=== PATIENT | female | born 1965 | race Caucasian/White ===

== ENCOUNTER → 2016-12-19 | Outpatient (CLI) | payer OTHER ==
--- NOTE | 2016-12-20 09:02 | MM ---
Reason for exam: screening (asymptomatic). Last mammogram was performed 1 year and 1 month ago. History: Patient had first child at age 39. Benign excisional biopsy of the left breast, 1992. Took hormonal contraceptives for 15 years beginning at age 20. Physical Findings: A clinical breast exam by your physician is recommended on an annual basis and results should be correlated with mammographic findings. MG 3D Screening Mammo W/Cad Bilateral CC and MLO view(s) were taken. Prior study comparison: November 10, 2015, right breast MG 3d work up w/cad RT. November 03, 2015, bilateral MG screening mammo w CAD. The breast tissue is heterogeneously dense. This may lower the sensitivity of mammography. Finding: There is a 7 mm equal density (isodense), obscured oval mass in the upper outer quadrant of the left breast. ASSESSMENT: Incomplete: need additional imaging evaluation, BI-RAD 0 RECOMMENDATION: Special view mammogram and ultrasound of the left breast. [facility] will attempt to contact patient to return for supplemental views and ultrasound.
== END | disposition home or self-care (01) ==
LOC: RADMAMWWP 08:17
PROVIDERS: ATTEND Obstetrics & Gynecology
DX: Z12.31 Encounter for screening mammogram for malignant neoplasm of breast (principal)
CPT/HCPCS: 77063; G0202

== ENCOUNTER → 2017-01-10 | Outpatient (CLI) | payer OTHER ==
--- NOTE | 2017-01-10 11:07 | MM ---
Reason for exam: additional evaluation requested from abnormal screening. Last mammogram was performed 1 month ago. History: Patient had first child at age 39. Benign excisional biopsy of the left breast, 1992. Took hormonal contraceptives for 15 years beginning at age 20. Physical Findings: Nurse did not find any significant physical abnormalities on exam. MG 3D Work Up W/Cad LT Spot compression ML and spot compression MLO view(s) were taken of the left breast. Prior study comparison: December 19, 2016, bilateral MG 3d screening mammo w/cad. November 10, 2015, right breast MG 3d work up w/cad RT. Persistent nodularity upper outer quadrant left breast. Ultrasound is recommended. These results were verbally communicated with the patient and result sheet given to the patient on 01/10/17. ASSESSMENT: Incomplete: need additional imaging evaluation, BI-RAD 0 RECOMMENDATION: Ultrasound of the left breast.
--- NOTE | 2017-01-10 11:08 | USB ---
Reason for exam: additional evaluation requested from abnormal screening. History: Patient had first child at age 39. Benign excisional biopsy of the left breast, 1992. Took hormonal contraceptives for 15 years beginning at age 20. US Breast Workup Limited LT Left breast ultrasound demonstrates a 0.3 x 0.2 x 0.4cm oval lesion too small to characterize at 1 o'clock and a 0.5 x 0.3 x 0.5cm oval, cystic lesion at 2 o'clock. These results were verbally communicated with the patient and result sheet given to the patient on 01/10/17. ASSESSMENT: Probably benign, BI-RAD 3 RECOMMENDATION: Follow-up diagnostic mammogram and ultrasound of the left breast in 6 months.
== END | disposition home or self-care (01) ==
LOC: RADMAMWWP 08:37
PROVIDERS: ATTEND Obstetrics & Gynecology
DX: R92.8 Other abnormal and inconclusive findings on diagnostic imaging of breast (principal)
CPT/HCPCS: 76642; G0206; G0279

== ENCOUNTER → 2017-09-04 | Outpatient (CLI) | payer OTHER ==
--- NOTE | 2017-09-04 11:13 | MM ---
Reason for exam: follow-up at short interval from prior study. Last mammogram was performed 8 months ago. History: Patient had first child at age 39. Benign excisional biopsy of the left breast, 1992. Took hormonal contraceptives for 15 years beginning at age 20. Physical Findings: Nurse did not find any significant physical abnormalities on exam. MG 3D Diag Mammo W/Cad LT CC and MLO view(s) were taken of the left breast. Prior study comparison: January 10, 2017, left breast MG 3d work up w/cad LT. December 19, 2016, bilateral MG 3d screening mammo w/cad. February 07, 2014, bilateral digital screening mammo w/CAD. January 30, 2013, bilateral digital screening mammo w/CAD. The breast tissue is heterogeneously dense. This may lower the sensitivity of mammography. Two areas of nodularity in the left upper outer quadrant are more pronounced. An area of nodularity superior left breast is stable from 2014. These results were verbally communicated with the patient and result sheet given to the patient on 09/04/17. ASSESSMENT: Incomplete: need additional imaging evaluation, BI-RAD 0 RECOMMENDATION: Ultrasound of the left breast.
--- NOTE | 2017-09-04 11:15 | USB ---
Reason for exam: additional evaluation requested from abnormal screening. History: Patient had first child at age 39. Benign excisional biopsy of the left breast, 1992. Took hormonal contraceptives for 15 years beginning at age 20. US Breast LT Left breast ultrasound includes all four quadrants, the retroareolar region and axilla. Finding demonstrates a 0.4 x 0.3 x 0.2cm cystic lesion at 1 o'clock and a 0.6 x 0.5 x 0.3cm cystic lesion at 2 o'clock. Both benign. These results were verbally communicated with the patient and result sheet given to the patient on 09/04/17. ASSESSMENT: Probably benign, BI-RAD 3 RECOMMENDATION: Follow-up diagnostic mammogram of both breasts in 6 months.
== END ==
LOC: RADMAMWWP 08:59
PROVIDERS: ATTEND Obstetrics & Gynecology
DX: R92.8 Other abnormal and inconclusive findings on diagnostic imaging of breast (principal)
CPT/HCPCS: 76641; G0206; G0279

== ENCOUNTER → 2018-03-12 | Outpatient (CLI) | payer OTHER ==
--- NOTE | 2018-03-13 08:13 | MM ---
Reason for exam: follow-up at short interval from prior study. Last mammogram was performed 6 months ago. History: Patient had first child at age 39. Benign excisional biopsy of the left breast, 1992. Took hormonal contraceptives for 15 years beginning at age 20. Physical Findings: Nurse Summary: prominent area nodular tissue, unable to determine borders at 9 o'clock (nurse ts). MG 3D Diag Mammo W/Cad CHELSIE Bilateral CC and MLO view(s) were taken. LM view(s) were taken of the left breast. Prior study comparison: September 04, 2017, left breast MG 3d diag mammo w/cad LT. January 10, 2017, left breast MG 3d work up w/cad LT. The breast tissue is heterogeneously dense. This may lower the sensitivity of mammography. There is a new lower outer quadrant mass at posterior depth with spiculated margins. Ultrasound will be performed. The left asymmetries are stable. These results were verbally communicated with the patient and result sheet given to the patient on 03/12/18. ASSESSMENT: Incomplete: need additional imaging evaluation, BI-RAD 0 RECOMMENDATION: Ultrasound of the right breast. (lower outer quadrant)
--- NOTE | 2018-03-13 08:16 | USB ---
Reason for exam: additional evaluation requested from abnormal screening. History: Patient had first child at age 39. Benign excisional biopsy of the left breast, 1992. Took hormonal contraceptives for 15 years beginning at age 20. US Breast Limited RT Right breast ultrasound demonstrates a 1.3 x 0.8 x 1.0cm irregular, hypoechoic, shadowing lesion at 8 o'clock and a 0.5 x 0.3 x 0.5cm possibly cystic lesion at 9 o'clock although only minimal increase through transmission on a single image. These results were verbally communicated with the patient and result sheet given to the patient on 03/12/18. ASSESSMENT: Highly suggestive of malignancy, BI-RAD 5 RECOMMENDATION: Ultrasound core biopsy of the right breast. (x 2) Called Dr. Bran with mammographic findings and has scheduled an appointment for the patient for 04/05/18 at 9:[address] Ruano. Biopsy scheduled for 03/19/18 at 10:00. PRELIMINARY REPORT CALLED AND FAXED TO DR. RUANO ON 03/13/18.
== END | disposition home or self-care (01) ==
LOC: RADMAMWWP 08:09
PROVIDERS: ATTEND Obstetrics & Gynecology
DX: R92.8 Other abnormal and inconclusive findings on diagnostic imaging of breast (principal)
CPT/HCPCS: 77066; 76642; G0279

== ENCOUNTER → 2018-03-19 | Day surgery (SDC) | payer OTHER ==
[2018-03-19 09:30] VITALS: RESP 16; BMI 25.6
[2018-03-19 11:22] VITALS: BP 136/84; PULSE 76; TEMP 98.3
--- NOTE | 2018-03-19 14:17 | USB ---
EXAMINATION TYPE: US biopsy breast VAD RT, MG diagnostic mammo RT wo CAD DATE OF EXAM: 03/19/2018 CLINICAL HISTORY: R92.8 Abn mammo. TECHNIQUE: Ultrasound guided core biopsy of a right breast mass. COMPARISON: Exams dating back to 11/10/2015 FINDINGS: The procedure of ultrasound guided core biopsy was explained to the patient. Benefits, alternatives, and risks were discussed. An informed consent was then obtained. Preprocedural timeout was performed. The patient was placed in supine positioning for imaging and for the procedure. The overlying skin was prepped and draped in usual sterile fashion. 10 cc of lidocaine buffered with bicarbonate was used as anesthetic into the skin and subcutaneous tissue up to the hypoechoic irregular right breast mass at the 8: 00 position measuring 1.3 x 0.8 x 1.0 cm. Under ultrasound guidance, a 12-gauge vacuum assisted biopsy gun device was used to obtain 5 core samples. Following this, a coil-shaped biopsy marker was left in lesion. On prescan images and additional 0.5 x 0.5 x 0 point for centimeters in hypoechoic mass was identified adjacent to the index mass such as on image 13 without increased through transmission. Ribbon-shaped biopsy marker was placed in this mass. Post clip placement demonstrates collapse of the mass compatible with a benign cyst. The patient tolerated the procedure well without any immediate complication. The patient was kept in the radiology department for short stay after the procedure and then discharged home in stable condition. IMPRESSION: Successful, uncomplicated ultrasound guided core biopsy of the highly suspicious 1.3 cm irregular right breast mass at the 8:00 position containing a coil-shaped biopsy marker, full pathology results to follow. 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 Recommendation Surgical consult of the right breast. LANE
== END ==
LOC: RADUSWWP 08:53
PROVIDERS: ATTEND Surgery
DX: C50.911 Malignant neoplasm of unspecified site of right female breast (principal)
CPT/HCPCS: 88305; 88342; 88341; 77065; 19083; A4648; J2001

== ENCOUNTER → 2018-04-13 | Outpatient (CLI) | payer OTHER ==
--- NOTE | 2018-04-14 09:53 | BMR ---
EXAMINATION TYPE: MR breast BILAT wo/w con DATE OF EXAM: 04/13/2018 COMPARISON: 03/19/2018 HISTORY: Rt breast ca 5-3-18 (moderately differentiated infiltrating ductal carcinoma with a focus of lobular carcinoma in situ), biopsy performed, hx lt breast lumpectomy TECHNIQUE: A series of fat and water weighted images in the long and short axis views of both breasts are obtained in conjunction with dynamic contrast MRI with subtraction technique. The patient was i njected with 6.5 mL intravenous Gadavist gadolinium contrast. Three-dimensional and additional post processing imaging is created on independent workstation and reviewed during official interpretation of this study. FINDINGS: The breasts are composed of heterogenous fibroglandular tissue. There is mild symmetric [place] kground parenchymal enhancement. Scattered T2 hyperintense nonenhancing cysts are seen bilaterally an d are subcentimeter. RIGHT BREAST: At the location of the prior biopsy there is susceptibility artifact from the biopsy ma rker and abnormal enhancement measuring 1.9 cm in transverse dimension with a dominant mass measuring 1.1 cm in anterior posterior dimension. This mass demonstrates type III kinetics compatible with bio psy-proven invasive ductal carcinoma. However there is abnormal linear nonmass enhancement continuing anteriorly from the lateral aspect of the mass extending 2.1 cm with type I kinetics. Additionally j ust superior to this approximately 8 mm there is abnormal nonmass linear enhancement measuring 3.0 cm in anterior posterior dimension this also demonstrates type I kinetics and is symmetric to the left breast. LEFT BREAST: At the 2:30 to 3:00 position within the left breast there is a 4 mm mass with type III kinetics, susp icious. This is located approximately 4 cm from the nipple. This is demonstrated on series 801 image 338 and subtraction series 802 image 338. Just superior to this a second smaller mass measuring 3 mm on image 362 also demonstrates type III kinetics to a lesser degree and may represent an intramammary lymph node as a small cleft is seen on image 62 of T1 nonfat sat precontrast images (series 601). Th vaishnavi are only located approximately 4 mm apart. Posterior to this on image 362 there is a focal area o f approximately 1.2 cm of linear clumped nonmass enhancement, however this demonstrates type I kineti cs and is also low suspicion. This is thought to be anterior to the prior left lumpectomy site. No carter rgical clips are seen. At the 6:00 position at posterior depth within the left breast there is a 4 mm mass and an adjacent 5 mm mass at the 5:00 position. These are located approximately 7.7 and 8.3 cm from the nipple. These both demonstrate type I persistent kinetics and are of low suspicion. LYMPH NODES: There is a markedly abnormal right axillary node measuring 1.3 cm in short axis on serie s 301 image 31. The remainder the right axillary lymph nodes appear morphologically unremarkable. No abnormal internal mammary adenopathy is identified. 3 mm left internal mammary nodes are seen. No jigar picious left adenopathy is identified. IMPRESSION: BI-RADS 4-[id number] right breast carcinoma (invasive ductal carcinoma and focus of lo bular carcinoma in situ). 1. Surrounding the biopsy marker the primary biopsy-proven invasive ductal carcinoma measures 1.9 x 1 .1 cm at 8:00 within the right breast. However a contiguous area of of linear nonmass enhancement wit h persistent genetic extends 2.1 cm anterior to the primary mass. Typically this would be of low susp icion, however given the biopsy results of focal lobular carcinoma in situ, lobular carcinoma is poss ible. MRI guided biopsy of the more anterior aspect is recommended to establish extent of disease. Re commendation for the additional site just superior to this measuring 3 cm and left breast similar are a would be based on biopsy results of the above site. 2. Within the left breast approximately 4 cm of the nipple there is a 4 mm suspicious mass with type III (washout) kinetics. Second look ultrasound is recommended. If seen on ultrasound ultrasound-guide d biopsy is recommended. If not seen on ultrasound MR guided biopsy is recommended. 3. Abnormal right axillary lymph node highly suspicious for metastasis. Ultrasound-guided biopsy or s urgical therapy are recommended.
== END | disposition home or self-care (01) ==
LOC: RADMRIMAIN 14:14
PROVIDERS: ATTEND Surgery
DX: C50.911 Malignant neoplasm of unspecified site of right female breast (principal); N63.20 Unspecified lump in the left breast, unspecified quadrant
CPT/HCPCS: 82565; 77059; 36415; 0159T; A9581

== ENCOUNTER 2018-04-23 11:56 | Day surgery (SDC) | payer OTHER ==
[2018-04-23] MEDS ORDERED: ALPRAZolam 0.5 MG TAB PO ONE (12:28)
[2018-04-23] MEDS ORDERED: NALOXONE 0.4 MG/ML 1 ML VIAL IV PRN (17:33)
[2018-04-23] MEDS ORDERED: ACETAMINOPHEN TAB 325 MG TAB PO PRN (17:33)
[2018-04-23] MEDS ORDERED: ONDANSETRON 4 MG/2 ML VIAL IVP PRN (17:33)
[2018-04-23] MEDS ORDERED: HYDROmorphone 0.5 MG/0.5 ML SYRINGE IVP PRN (17:33)
[2018-04-23] MEDS ORDERED: HYDROcodone/APAP 5-325MG 1 EACH TAB PO PRN (17:33)
--- NOTE | 2018-04-23 17:39 | P.GSHP ---
History of Present Illness H&P Date: 04/23/18 Chief Complaint: Right breast hematoma Patient here today for MRI guided biopsy. I was contacted by the nursing staff that the patient developed a hematoma following the procedure. Initially on ultrasound the hematoma was 1.5-2 cm and then later when rechecked it was as large as 3 cm. On ultrasound there appeared to be some active bleeding seen. Patient was having pain in the right breast. No syncopal episodes. Vital signs of been stable. She says the pain seems to be improved currently. Recent ultrasound shows stability of the hematoma without evidence of active bleeding. Past Medical History Past Medical History: Cancer Additional Past Medical History / Comment(s): breast History of Any Multi-Drug Resistant Organisms: None Reported Past Surgical History: Section Additional Past Surgical History / Comment(s): left breast excisional biopsy 1992-benign, breast biopsy 03/19/18 Past Anesthesia/Blood Transfusion Reactions: No Reported Reaction Past Psychological History: No Psychological Hx Reported Smoking Status: Never smoker Past Alcohol Use History: None Reported Past Drug Use History: None Reported - Past Family History Sister(s) Family Medical History: Cancer, Diabetes Mellitus Additional Family Medical History / Comment(s): leukemia Father Family Medical History: Diabetes Mellitus, Hypertension Mother Family Medical History: Hypertension Medications and Allergies Home Medications Medication Instructions Recorded Confirmed Type Multivitamin [Multivitamins Adult 1 tab PO DAILY 03/12/18 04/23/18 History Gummies] Cholecalciferol (Vitamin D3) 2,000 unit PO DAILY 04/19/18 04/23/18 History [Vitamin D3] amLODIPine [Norvasc] 5 mg PO DAILY 04/19/18 04/23/18 History Allergies Allergy/AdvReac Type Severity Reaction Status Date / Time No Known Allergies Allergy Verified 04/23/18 10:35 Surgical - Exam Vital Signs Temp Pulse Resp BP Pulse Ox 98.1 F 80 16 142/76 99 04/23/18 12:30 04/23/18 12:30 04/23/18 12:30 04/23/18 12:30 04/23/18 12:30 Physical exam: General: Well-developed, well-nourished HEENT: Normocephalic, sclerae nonicteric Right breast: Induration beneath a small needle incision site right breast at 8 :00 size of hematoma less than expected measuring approximately 2 cm by palpation. Abdomen: Nontender, nondistended Extremities: No edema Neuro: Alert and oriented Assessment and Plan (1) Hematoma of breast following procedure Narrative/Plan: Options discussed with the patient. We'll proceed with observation overnight. If hematoma stable hopefully can proceed with right axillary and left breast ultrasound biopsies tomorrow. Current Visit: Yes Status: Acute Code(s): [id number] - SNOMED Code(s): 274693803
[2018-04-23] MEDS: D5-0.45% NACL WITH KCL 20MEQ/L 1,000 ML IV SCH (18:34)
[2018-04-24 01:47] VITALS: RESP 18
[2018-04-24] MEDS: D5-0.45% NACL WITH KCL 20MEQ/L 1,000 ML IV SCH (02:48)
--- NOTE | 2018-04-24 07:58 | P.DS ---
Providers Expected date of discharge: 04/24/18 Attending physician: Emmanuel Ruano Primary care physician: Mikki Weinberg - Discharge Diagnosis(es) (1) Hematoma of breast following procedure Patient minute yesterday evening for observation after a MRI guided biopsy resulted in a right breast hematoma. Patient doing well at this time. The patient did not feel any increased pain and swelling or bleeding last night. Exam is unchanged from yesterday evening with a small hematoma at the 8 o'clock position right breast. We'll discharge patient today. Hopefully the patient can proceed with her left breast ultrasound core biopsy and right axillary lymph node biopsy today. Current Visit: Yes Status: Acute Plan - Discharge Summary Discharge Rx Participant: Yes New Discharge Prescriptions: No Action Multivitamin [Multivitamins Adult Gummies] 1 tab PO DAILY amLODIPine [Norvasc] 5 mg PO DAILY Cholecalciferol (Vitamin D3) [Vitamin D3] 2,000 unit PO DAILY Discharge Medication List Multivitamin [Multivitamins Adult Gummies] 1 tab PO DAILY 03/12/18 [History] Cholecalciferol (Vitamin D3) [Vitamin D3] 2,000 unit PO DAILY 04/19/18 [History] amLODIPine [Norvasc] 5 mg PO DAILY 04/19/18 [History]
[2018-04-24 08:55] VITALS: BP 149/78; PULSE 74; TEMP 97.5
--- NOTE | 2018-04-24 09:11 | BMR ---
EXAMINATION TYPE: MR breast biopsy w/vad RIGHT DATE OF EXAM: 04/23/2018 COMPARISON: 04/13/2018 HISTORY: Right breast biopsy and confirmation of the left breast biopsy marker placement. TECHNIQUE: Multiplanar, multisequence MR imaging of the right breast with the utilization of contrast was performed per biopsy protocol. Left breast was included in some sequences. The patient was injec radha with 6.5 mL intravenous Gadavist gadolinium contrast. Three-dimensional and additional postproc essing imaging is created on independent workstation and reviewed during the biopsy. FINDINGS: On preprocedural imaging the previously identified mass elongates and appears vascular ther efore adjacent to this the anterior margin of area of linear nonmass enhancement measuring 2.1 cm was biopsied corresponding to the MR image 269 of series 801 from the exam of 04/13/2018 to establish ant erior extent of disease in this patient with a known lobular carcinoma in situ and infiltrating ducta l carcinoma. A left biopsy marker placed under ultrasound guidance just prior to the procedure within a sonographi c mass in attempt to correlate a sonographic mass with the abnormal area of enhancement within the le ft breast seen on the MRI dated 04/13/2018. This appears to correlate with the biopsy marker just supe rior to the MRI mass and similar measurement from the nipple therefore ultrasound-guided biopsy is re commended. PROCEDURE: Preprocedural timeout was performed. Informed consent was obtained from the patient. The p atient was given an anxiolytic per nursing staff prior to the procedure. A grid was placed on the rig ht breast. Preprocedural imaging was performed establishing the target. Images were sent to the three -dimensional postprocessing software and computer algorithm was utilized to establish depth and locat ion in accordance to the grid and fiducial. The patient was sterilely prepped with Betadine and 1% li docaine without epinephrine was utilized to anesthetize the subcutaneous tissues. Subsequently the tr ocar was introduced to the appropriate depth and confirmation scan was performed after placement of t he stopper. At the site of biopsy the patient was again anesthetized with 10 cc of lidocaine without epinephrine. A vacuum assisted needle was used to obtain 8 samples. Biopsy marker was placed and conf irmation sequence was performed. The biopsy marker appears appropriately placed. A small postprocedur al hematoma was noted on postprocedural scanning. IMPRESSION: 1. Successful MRI guided biopsy of the right breast to establish anterior extent of disease in this p atient with known lobular carcinoma in situ and infiltrating ductal carcinoma. 2. Successful left breast biopsy marker placement corresponding to the abnormal area of enhancement o n the prior MR dated 04/13/2018. Ultrasound-guided core needle biopsy will subsequently be performed.
== END 2018-04-24 09:16 | disposition home or self-care (01) ==
LOC: RADMRIMAIN 11:56 → 6PED 17:44 → RADMRIMAIN 04-24 09:16
PROVIDERS: ATTEND Surgery
DX: C50.911 Malignant neoplasm of unspecified site of right female breast (principal); L76.32 Postprocedural hematoma of skin and subcutaneous tissue following other procedure; Z79.899 Other long term (current) drug therapy
CPT/HCPCS: 76536; 76641; 0159T; 19085; A4648; A9581

== ENCOUNTER 2018-04-23 12:01 | Day surgery (SDC) | payer OTHER ==
[2018-04-23 12:51] VITALS: BP 145/88; PULSE 80; RESP 16; TEMP 98.1
--- NOTE | 2018-04-23 16:34 | US ---
Discontinued biopsy right axilla HISTORY: Abnormal imaging exam, right breast cancer Exam is rescheduled due to biopsy hematoma same date.
--- NOTE | 2018-04-24 10:58 | USB ---
Reason for exam: additional evaluation requested from prior study. History: Patient has history of breast cancer at age 52 and had first child at age 39. Malignant US biopsy breast VAD RT of the right breast, March 19, 2018. Benign excisional biopsy of the left breast, 1992. Took hormonal contraceptives for 15 years beginning at age 20. US Breast LT Left complete breast ultrasound includes all four quadrants, the retroareolar region and axilla. Finding demonstrates a 0.6 x 0.4 x 0.6cm oval, cystic lesion at 2 o'clock, a 0.6 x 0.4 x 0.4cm oval, cystic lesion at 2 o'clock, a 0.4 0.2 x 0.5cm oval, hypoechoic, questionable node at 2 o'clock for which a biopsy is recommended, corresponds to MRI finding, a 0.5 x 0.2 x 0.4cm oval, cystic cluster at 2 o'clock and a 0.3 x 0.2 x 0.6cm oval, cystic lesion at 6 o'clock. These results were verbally communicated with the patient and result sheet given to the patient on 04/23/18. ASSESSMENT: Suspicious, BI-RAD 4 RECOMMENDATION: Ultrasound core biopsy of the left breast.
== END 2018-04-23 16:30 | disposition home or self-care (01) ==
LOC: RADPROMAIN 12:01
PROVIDERS: ATTEND Surgery
DX: C50.511 Malignant neoplasm of lower-outer quadrant of right female breast (principal)
CPT/HCPCS: 76536

== ENCOUNTER 2018-05-01 12:00 | Day surgery (SDC) | payer OTHER ==
[2018-05-01] MEDS ORDERED: ALPRAZolam 0.5 MG TAB PO STA (12:39)
[2018-05-01 15:36] VITALS: TEMP 97
--- NOTE | 2018-05-01 16:03 | USB ---
EXAMINATION TYPE: US biopsy breast VAD LT DATE OF EXAM: 05/01/2018 CLINICAL HISTORY: R92.8 abnl mammogram. TECHNIQUE: Ultrasound guided core biopsy of left breast. COMPARISON: NONE FINDINGS: The procedure of ultrasound guided core biopsy was explained to the patient. Benefits, alternatives, and risks were discussed. An informed consent was then obtained. Preprocedural timeout was performed. The hypoechoic shadowing mass at the 2:00 position in zone BC containing a biopsy clip marker placed pre-MRI on 04/23/2018 corresponding to the abnormal area of enhancement on MRI measures 4 mm and was preprocedurally located. The patient was placed in supine positioning for imaging and for the procedure. The overlying skin was prepped and draped in usual sterile fashion. 10 cc of lidocaine buffered with bicarbonate was used as anesthetic into the skin and subcutaneous tissue up to area described above within the left breast. Under ultrasound guidance, a 12-gauge vacuum assisted biopsy gun device was used to obtain 5 core samples. Following this, a ribbon-shaped biopsy marker was left in lesion. The patient tolerated the procedure well without any immediate complication. The patient was kept in the radiology department for short stay after the procedure and then discharged home in stable condition. IMPRESSION: Successful, uncomplicated ultrasound guided core biopsy of a 4 mm hypoechoic shadowing mass at the 2:00 position within the left breast containing a biopsy marker corresponding to abnormal enhancement on MR, full pathology results to follow. Pathology Results: Benign LEFT BREAST, NEEDLE CORE BIOPSIES: Fibrocystic spectrum changes, fibroadenoma. Mineralizations are not identified. Recommendation Surgical consult of the right breast. Continued management. Left benign, fibroadenoma, no malignancy identified in the left breast. [facility]
[2018-05-01 16:06] VITALS: BP 147/76; PULSE 86; RESP 16
--- NOTE | 2018-05-01 16:08 | US ---
EXAMINATION TYPE: US biopsy lymph node. Grayscale and color Doppler Duplex imaging performed of the scrotum. DATE OF EXAM: 05/01/2018 COMPARISON: NONE CLINICAL HISTORY: C50.511 Right breast cancer. Abnormal axillary adenopathy. FINDINGS: The procedure of ultrasound guided core biopsy was explained to the patient. Benefits, alt ernatives, and risks were discussed. An informed consent was then obtained. Preprocedural timeout w as performed. Two adjacent right axillary lymph nodes are seen. The lymph node with the most thickened cortex was s ampled as indicated on the images with a cortex measuring 8 mm eccentrically. The patient was placed in supine positioning for imaging and for the procedure. The overlying skin w as prepped and draped in usual sterile fashion. 10 cc of lidocaine buffered with bicarbonate was used as anesthetic into the skin and subcutaneous tissue up to area described above within the right [address] st. Under ultrasound guidance, a 18-gauge Temno device was used to obtain 6 core samples. Following this , a Hydromark biopsy marker was left in axillary node. The patient tolerated the procedure well without any immediate complication. The patient was kept in the radiology department for short stay after the procedure and then discharged home in stable condi tion. IMPRESSION: Successful, uncomplicated ultrasound guided core biopsy of a a right axillary lymph node with an eccentrically thickened cortex measuring up to 8 mm with a hydromark biopsy marker placed, fu ll pathology results to follow.
== END 2018-05-01 14:45 | disposition home or self-care (01) ==
LOC: RADUSMAIN 12:00
PROVIDERS: ATTEND Surgery
DX: D24.2 Benign neoplasm of left breast (principal); N60.12 Diffuse cystic mastopathy of left breast; R92.8 Other abnormal and inconclusive findings on diagnostic imaging of breast
CPT/HCPCS: 88305; 38505; 19083; A4648; 76942

== ENCOUNTER → 2018-05-19 | Outpatient (CLI) | payer OTHER ==
--- NOTE | 2018-05-20 13:09 | PE ---
Nuclear medicine PET/CT HISTORY: Breast carcinoma, initial Patient received 11.4 mCi F-18 FDG intravenously in delayed scanning was performed from the skull bas e to the mid thighs. Localization and attenuation correction CT scan was performed. Correlation to prior MR breast 04/23/2018 Neck and chest: There is no evident lung nodule. There are prevascular nodes without associated hyper metabolic uptake. Right axilla shows lymph node measures approximately 9 mm with associated hypermeta bolic uptake, SUV 3. Additional lymph nodes noted, smaller, without significant hypermetabolic uptake . Posterior right breast mass shows an SUV of 3.1, there is likely metallic clip at this level, focus is subcentimeter in size. Abdomen pelvis: No evident liver mass. No suspicious hypermetabolic uptake. No retroperitoneal mass. Lobular contour to the uterus with calcification compatible with fibroid uterus. Osseous structures are unremarkable. IMPRESSION: Findings compatible with patient's history of breast carcinoma as described. Right axilla ry node with mild uptake as described.
== END ==
LOC: RADPETMAIN 15:50
PROVIDERS: ATTEND Internal Medicine Hematology & Oncology
DX: C50.511 Malignant neoplasm of lower-outer quadrant of right female breast (principal); R94.8 Abnormal results of function studies of other organs and systems
CPT/HCPCS: 78815; A9552

== ENCOUNTER → 2018-05-31 | Outpatient (CLI) | payer OTHER ==
--- NOTE | 2018-06-04 10:30 | ECHOF ---
Referral Reason:Z01.818 Pre Chemo MEASUREMENTS -------- HEIGHT: 157.5 cm WEIGHT: 63.5 kg BP: RVIDd: 2.5 cm (< 3.3) IVSd: 1.0 cm (0.6 - 1.1) LVIDd: 4.0 cm (3.9 - 5.3) LVPWd: 1.0 cm (0.6 - 1.1) IVSs: 1.2 cm LVIDs: 2.6 cm LVPWs: 1.2 cm LAESV Index (A-L): 17.49 ml/m Ao Diam: 2.8 cm (2.0 - 3.7) AV Cusp: 1.9 cm (1.5 - 2.6) LA Diam: 2.4 cm (2.7 - 3.8) EPSS: 0.4 cm MV E Moody: 0.78 m/s MV DecT: 200 ms MV A Moody: 1.08 m/s MV E/A Ratio: 0.72 RAP: 5.00 mmHg RVSP: 17.89 mmHg MV EF SLOPE: 101.75 mm/s (70 - 150) MV EXCURSION: 1.17 cm (> 18.000) FINDINGS -------- Sinus rhythm. This was a technically good study. The left ventricular size is normal. Left ventricular wall thickness is normal. Overall left vent ricular systolic function is normal with, an EF between 55 - 60 %. The right ventricle is normal in size and function. Normal LA size by volume 22+/-6 ml/m2. The right atrium is normal in size. The aortic valve is trileaflet, and appears structurally normal. No aortic stenosis or regurgitation. The mitral valve is normal. There is trace to mild mitral regurgitation. Trace tricuspid regurgitation present. Right ventricular systolic pressure is normal at < 35 mmHg. There is no evidence of pulmonary hypertension. Trace/mild (physiologic) pulmonic regurgitation. The aortic root size is normal. Normal inferior vena cava with normal inspiratory collapse consistent with estimated right atrial pre ssure of 5 mmHg. There is no pericardial effusion. CONCLUSIONS -------- 1. Sinus rhythm. 2. This was a technically good study. 3. The left ventricular size is normal. 4. Left ventricular wall thickness is normal. 5. Overall left ventricular systolic function is normal with, an EF between 55 - 60 %. 6. Normal LA size by volume 22+/-6 ml/m2. 7. The aortic valve is trileaflet, and appears structurally normal. No aortic stenosis or regurgitati on. 8. There is trace to mild mitral regurgitation. 9. Trace tricuspid regurgitation present. 10. Right ventricular systolic pressure is normal at < 35 mmHg. 11. There is no evidence of pulmonary hypertension. 12. Trace/mild (physiologic) pulmonic regurgitation. 13. The aortic root size is normal. 14. There is no pericardial effusion. STACKER OPERATOR: Melquiades Ashby RDCS
== END ==
LOC: RADECHMAIN 16:06
PROVIDERS: ATTEND Internal Medicine Hematology & Oncology
DX: Z01.818 Encounter for other preprocedural examination (principal); I34.0 Nonrheumatic mitral (valve) insufficiency; C50.511 Malignant neoplasm of lower-outer quadrant of right female breast
CPT/HCPCS: 93306

== ENCOUNTER 2018-06-11 10:09 | Day surgery (SDC) | payer OTHER ==
[2018-06-05 11:33] VITALS: BMI 25.6
[~2018-06-11 10:09] MED LIST: DEXAMETHASONE SOD PHOSPHATE 10 MG/ML 1 ML VIAL IV ONE; LACTATED RINGERS 1,000 ML IV SCH; LIDOCAINE 1% 20 ML VIAL (10MG/ML) FOR IV START INTRADERMA PRN; MIDAZOLAM 2 MG/2 ML VIAL IV PRN; ONDANSETRON 4 MG/2 ML VIAL IVP ONE; Pre Op ABX Message 1 EACH MISC MISCELLANE ONE
[2018-06-11 10:54] VITALS: RESP 16; TEMP 99.3
[2018-06-11] MEDS ORDERED: LIDOCAINE 1% INJ 10MG/ML (20 ML MDV) SQ ONE ×2 (11:21→12:27)
--- NOTE | 2018-06-11 11:34 | P.GSHP ---
History of Present Illness H&P Date: 06/11/18 Chief Complaint: Right breast cancer Patient here today for Port-A-Cath placement. Diagnosed with recent right breast cancer. Patient was found to have a suspicious lymph node in the right axilla. A biopsy showed this to contain metastatic disease. She is going to begin neoadjuvant treatment. Past Medical History Past Medical History: Cancer, Hypertension Additional Past Medical History / Comment(s): R Breast History of Any Multi-Drug Resistant Organisms: None Reported Past Surgical History: Section Additional Past Surgical History / Comment(s): left breast excisional biopsy 1992-benign, breast biopsy 03/19/18, MRI right breast biopsy 04/23/18, Past Anesthesia/Blood Transfusion Reactions: No Reported Reaction Smoking Status: Never smoker - Past Family History Sister(s) Family Medical History: Cancer, Diabetes Mellitus Additional Family Medical History / Comment(s): leukemia Father Family Medical History: Diabetes Mellitus, Hypertension Mother Family Medical History: Hypertension Medications and Allergies Home Medications Medication Instructions Recorded Confirmed Type Multivitamin [Multivitamins Adult 1 tab PO DAILY 03/12/18 06/11/18 History Gummies] Cholecalciferol (Vitamin D3) 2,000 unit PO DAILY 04/19/18 06/11/18 History [Vitamin D3] amLODIPine [Norvasc] 5 mg PO DAILY 04/19/18 06/11/18 History Allergies Allergy/AdvReac Type Severity Reaction Status Date / Time No Known Allergies Allergy Verified 06/11/18 10:54 Surgical - Exam Vital Signs Temp Pulse Resp BP Pulse Ox 99.3 F 94 16 166/88 100 06/11/18 10:48 06/11/18 10:48 06/11/18 10:48 06/11/18 10:48 06/11/18 10:48 Physical exam: General: Well-developed, well-nourished HEENT: Normocephalic, sclerae nonicteric Abdomen: Nontender, nondistended Extremities: No edema Neuro: Alert and oriented Assessment and Plan (1) Breast cancer, right Narrative/Plan: Will proceed with Port-A-Cath placement at this time. Risks of bleeding, infection, pneumothorax, DVT, catheter malfunction were reviewed. She understands and wishes to proceed. Current Visit: Yes Status: Acute Code(s): C50.911 - MALIGNANT NEOPLASM OF UNSP SITE OF RIGHT FEMALE BREAST SNOMED Code(s): 518280839
[2018-06-11] MEDS ORDERED: MIDAZOLAM 2 MG/2 ML VIAL ONE (11:46)
[2018-06-11] MEDS ORDERED: PROPOFOL 10 MG/ML 20 ML VIAL IV ONE (11:46)
[2018-06-11] MEDS ORDERED: KETAMINE 10 MG/ML 20 ML VIAL ONE (11:46)
[2018-06-11] MEDS ORDERED: fentaNYL (PF) 50 MCG/ML 2 ML AMP ONE (11:46)
[2018-06-11] MEDS ORDERED: NALOXONE 0.4 MG/ML 1 ML VIAL IV PRN (12:40)
--- NOTE | 2018-06-11 12:45 | P.OP ---
Date of Procedure: 06/11/18 Procedure(s) Performed: PREOPERATIVE DIAGNOSIS: Right breast cancer POSTOPERATIVE DIAGNOSIS: Same PROCEDURE: Port-A-Cath placement SURGEON: Bindu EBL: Minimal ANESTHESIA: Sedation COMPLICATIONS: None OPERATIVE PROCEDURE: Patient was brought and placed on the operative table in the supine position. The patient was sedated per anesthesia that time. The chest and neck were prepped and draped in usual sterile fashion. The ultrasound probe was used to identify the location of the right internal jugular vein. The skin was localized with lidocaine. The Seldinger needle was advanced into the IJ under ultrasound guidance. The wire was advanced through the needle under fluoroscopic guidance into the superior vena cava. A port pocket was created in the right infraclavicular location. The catheter was tunneled from the wire entrance site to the port pocket. The port was then connected to the catheter. The dilator introducer was threaded over the guidewire. The guidewire and dilator were then removed. The catheter was advanced through the introducer and introducer was then removed. The tip was seen to be in the right atrial junction. Port was flushed with both saline and a Hep-Lock solution. There was good flow both in and out of the port. The port was sutured in underlying tissues using 3-0 silk sutures. The subcutaneous tissues were reapproximated using 3-0 Vicryl sutures and the skin at both locations using 4-0 Monocryl sutures. Steri-Strips and sterile dressings then applied. DISPOSITION: Stable to recovery room
--- NOTE | 2018-06-11 12:54 | FL ---
EXAMINATION TYPE: FL guided central line placemt HISTORY: Fluoroscopy time Impression: 1. Fluoroscopy support provided to the referring physician. 5 seconds of fluoroscopy provided.
[2018-06-11 13:35] VITALS: PULSE 70
--- NOTE | 2018-06-11 13:40 | XR ---
EXAMINATION TYPE: XR chest 1V confirm line [facility] DATE OF EXAM: 06/11/2018 COMPARISON: NONE HISTORY: 53 year-old female line placement TECHNIQUE: Single frontal view of the chest is obtained. FINDINGS: Heart upper limits of normal in size. Aorta and pelvic vasculature within normal limits. R ight anterior chest wall injection port with catheter tip at the cavoatrial junction. No consolidatio n or pleural effusion. Some strandy atelectasis of the lower lungs. IMPRESSION: 1. Right anterior chest wall injection port with catheter tip at the cavoatrial junction. 2. No acute process seen.
[2018-06-11 13:56] VITALS: BP 136/84
== END 2018-06-11 14:06 | disposition home or self-care (01) ==
LOC: OR 10:09
PROVIDERS: ATTEND Surgery
DX: C50.511 Malignant neoplasm of lower-outer quadrant of right female breast (principal); I10 Essential (primary) hypertension; Z79.899 Other long term (current) drug therapy
CPT/HCPCS: 81025; 77001; 36561; 76937; C1788; J2250; J1100; J2405; J2001; J3010; J1642; J2704

== ENCOUNTER 2018-10-18 11:23 | Day surgery (SDC) | payer OTHER ==
[2018-10-15 12:35] VITALS: BMI 27.4
--- NOTE | 2018-10-18 09:41 | P.GSHP ---
History of Present Illness H&P Date: 10/18/18 Chief Complaint: Right breast cancer 53-year-old female known to our service. Patient was found in February to have a new mass in the lower outer quadrant of her right breast measuring 1.3 x 0.8 cm. She underwent an ultrasound core biopsy revealing moderately differentiated adenocarcinoma ER/ND positive HER-2/juventino negative. No family history. Patient underwent an MRI following the diagnosis of malignancy is found to have a suspicious right axillary lymph node as well as an abnormality in the left breast. She underwent an MRI guided biopsy of the left breast that was benign. Really the MRI biopsy of the right axilla showed a metastatic node. PET scan was negative. Mammorint was obtained and this was high risk. Patient was started on neoadjuvant chemotherapy. Patient has been offered plastic surgery reconstruction and has declined. She remains interested at this time in breast conservation. Patient did discuss genetic testing with oncology. I do not have those results in my office records at this time Past Medical History Past Medical History: Cancer, Hypertension Additional Past Medical History / Comment(s): R Breast History of Any Multi-Drug Resistant Organisms: None Reported Past Surgical History: Section Additional Past Surgical History / Comment(s): left breast excisional biopsy ; benign,L Br lumpectomy; R breast biopsy ;Chemo06/06 Past Anesthesia/Blood Transfusion Reactions: No Reported Reaction Smoking Status: Never smoker - Past Family History Sister(s) Family Medical History: Cancer, Diabetes Mellitus Additional Family Medical History / Comment(s): leukemia Father Family Medical History: Diabetes Mellitus, Hypertension Mother Family Medical History: Hypertension Medications and Allergies Home Medications Medication Instructions Recorded Confirmed Type Multivitamin [Multivitamins Adult 1 tab PO DAILY 03/12/18 10/15/18 History Gummies] Cholecalciferol (Vitamin D3) 2,000 unit PO DAILY 04/19/18 10/15/18 History [Vitamin D3] amLODIPine [Norvasc] 5 mg PO DAILY 04/19/18 10/15/18 History Allergies Allergy/AdvReac Type Severity Reaction Status Date / Time No Known Allergies Allergy Verified 10/15/18 12:15 Surgical - Exam Physical exam: General: Well-developed, well-nourished HEENT: Normocephalic, sclerae nonicteric Left breast: No masses, no adenopathy Right breast: Small fullness at previous hematoma site lower outer quadrant, no palpable adenopathy Abdomen: Nontender, nondistended Extremities: No edema Neuro: Alert and oriented Assessment and Plan (1) Breast cancer, right Narrative/Plan: 53-year-old female with recent diagnosis of right breast cancer and axillary iraida metastasis. Discussed with the patient in detail. She remains interested in breast conservation at this time. We'll proceed with right breast wire localization lumpectomy with wire localization and sentinel lymph node biopsy/injection with possible full axillary iraida dissection. Oncology also requesting Port-A-Cath removal at this time. That will take place simultaneous to the other procedures. Patient understands the need for postoperative radiation therapy. Again she has declined plastic surgery reconstruction/mastectomy. The risks of bleeding, infection, scarring, numbness , nerve injury, seroma or recurrence, potential need for additional surgery were reviewed and she understands and wishes to proceed. Status: Acute Code(s): C50.911 - MALIGNANT NEOPLASM OF UNSP SITE OF RIGHT FEMALE BREAST SNOMED Code(s): 006709707
[~2018-10-18 11:23] MED LIST changes: +ALPRAZolam 0.5 MG TAB PO PRN; +HYDROmorphone 1 MG/ML 1 ML SYRINGE IVP PRN; -MIDAZOLAM 2 MG/2 ML VIAL IV PRN; +SCOPOLAMINE 1.5MG/72HR PATCH TRANSDERM ONE
[2018-10-18] MEDS ORDERED: LIDOCAINE 1%-EPI 1:100,000 20 ML VIAL SQ ONE (13:30)
[2018-10-18] MEDS ORDERED: SODIUM BICARB 4% 5 ML VIAL (0.48 MEQ/ML) MISCELLANE ONE (13:30)
[2018-10-18] MEDS ORDERED: LIDOCAINE 1% INJ 10MG/ML (20 ML MDV) SQ ONE (13:30)
[2018-10-18 14:21] LABS: Glucose,Whole Blood 126 mg/dL (75-99)
--- NOTE | 2018-10-18 14:23 | NM ---
EXAMINATION TYPE: NM sentinel node injection DATE OF EXAM: 10/18/2018 COMPARISON: NONE HISTORY: Right-sided breast cancer TECHNIQUE AND FINDINGS: The procedure of sentinel lymph node injection was explained to the patient. The benefits, alternatives, and risks were discussed. An informed consent was then obtained. Overlying skin is cleaned with sterile alcohol. Following this, 464 uCi Tc99m Tilmanocept was inject ed in the upper outer aspect of the right nipple intradermally. The patient tolerated the procedure well without any immediate complication. The patient was kept in the radiology department for short stay after the procedure and then taken to surgery for surgical p rocedure what is presumed intraoperative gamma probe will be used for sentinel lymph node detection. IMPRESSION: Right breast radiotracer injection for sentinel node localization as above.
[2018-10-18] MEDS: MIDAZOLAM 2 MG/2 ML VIAL IV PRN ×2 (14:32→14:40)
[2018-10-18] MEDS ORDERED: ceFAZolin IN SWFI 2 GM/20 ML SYRINGE IVP STA (14:35)
[2018-10-18] MEDS ORDERED: HEPARIN SODIUM,PORCINE 5,000 UNIT/ML 1 ML VIAL SQ STA (14:36)
--- NOTE | 2018-10-18 14:47 | P.ONQ ---
Anesthesiology Proc Note - PNB - Peripheral Nerve Block Performed Right Other (see comment) Single Time Out Performed: Yes Procedure Start Time: 14:32 Procedure Stop Time: 14:39 Indication: Acute Post-Operative Pain, Requested by physician Sedation Type: Sedate with meaningful contact maintained Preparation: Sterile Prep Position: Supine Needle Size: 50mm (2") Needle Gauge: 21 Technique: Ultrasound Injectate: 0.5% Ropivacaine (see comment for volume) (ropi .5% 30cc) Blood Aspirated: No Pain Paresthesia on Injection Noted: No Resistance on Injection: Normal Events: Uneventful and Well Tolerated
[2018-10-18] MEDS ORDERED: MIDAZOLAM 2 MG/2 ML VIAL ONE (14:58)
[2018-10-18] MEDS ORDERED: HYDROmorphone (PF) 1 MG/ML ONE (14:58)
[2018-10-18] MEDS ORDERED: fentaNYL (PF) 50 MCG/ML 2 ML AMP ONE (14:58)
[2018-10-18] MEDS ORDERED: PHENYLEPHRINE-0.9% NACL SYG 1 MG/10 ML SYRINGE ONE (14:58)
[2018-10-18] MEDS ORDERED: LIDOCAINE 1% INJ 10MG/ML (20 ML MDV) ONE (14:58)
[2018-10-18] MEDS ORDERED: ROPIVACAINE 5 MG/ML 30 ML VIAL ONE (14:58)
[2018-10-18] MEDS ORDERED: KETAMINE 10 MG/ML 20 ML VIAL ONE (14:58)
[2018-10-18] MEDS ORDERED: SUCCINYLCHOLINE CHLORIDE 100 MG/5 ML SYR IV ONE (14:58)
[2018-10-18] MEDS ORDERED: PROPOFOL 10 MG/ML 20 ML VIAL IV ONE (14:58)
[2018-10-18] MEDS ORDERED: LACTATED RINGERS 1,000 ML IV ONE (15:12)
[2018-10-18] MEDS ORDERED: METHYLENE BLUE 10 MG/ML (10 ML VIAL) INJ ONE (15:14)
--- NOTE | 2018-10-18 15:35 | USB ---
EXAMINATION TYPE: US discontinued breast loc RT DATE OF EXAM: 10/18/2018 COMPARISON: Right axillary ultrasound May 01, 2018 HISTORY: History of lymph node positive right breast cancer on chemotherapy for last 2-3 months. TECHNIQUE: Attempted ultrasound needle localization with wire placement of biopsy-proven malignancy r ight axilla. FINDINGS: Scanning of right axilla fails to definitively show Hydromark or biopsy clip to definitivel y localize. Prior visualized lymph node had eccentric thickened cortex, with treatment it is now eugenie rly not identified. Case discussed with surgeon after initial ultrasound attempt with repeat ultrasou nd in attempt unsuccessful in identifying location for needle localization. IMPRESSION: As above.
[2018-10-18] MEDS ORDERED: HYDROcodone/APAP 5-325MG 1 EACH TAB PO PRN (16:55)
[2018-10-18] MEDS ORDERED: NALOXONE 0.4 MG/ML 1 ML VIAL IV PRN (16:55)
--- NOTE | 2018-10-18 17:02 | P.OP ---
Date of Procedure: 10/18/18 Procedure(s) Performed: PREOPERATIVE DIAGNOSIS: Right breast cancer POSTOPERATIVE DIAGNOSIS: Same PROCEDURE: Right Breast wire localization lumpectomy with sentinel lymph node biopsy and Port-A-Cath removal SURGEON: Bindu EBL: Minimal ANESTHESIA: General COMPLICATIONS: None OPERATIVE PROCEDURE: Patient was placed on the operating room table in the supine position. 3 mL of methylene blue was injected into the subareolar space. The breast was then massaged for 5 minutes. The right axilla was addressed at that time. The hot spot in the right axilla was identified. A small curvilinear incision was made using the scalpel. Dissection down through the subcutaneous tissues took place using electrocautery. Using the neoprobe I identified the initial sentinel lymph node. This had the most significant radiotracer and also had a bluish discoloration to it. An x-ray was obtained of the sentinel lymph node and this was negative for clip deployment. I was able to feel a area of slight induration which also had some radioactivity and this was excised. This portion of the dissection took place using the Harmonic scalpel. An x-ray of this area confirmed the presence of the clip from the previous biopsy. There is no residual radioactivity or blue lymphatics seen. I discussed the case with pathology regarding frozen section. Because of the patient's preoperative diagnosis of lymph node metastasis and new adjuvant therapy it was felt that residual malignancy would be difficult to identify with certainty on frozen section. There was no clinical suspicious nodes remaining in the axilla. Per our previous discussion with oncology a formal axillary node dissection did not take place at this time. The subcutaneous tissues were closed using 3-0 Vicryl sutures. The skin was closed using 4-0 Monocryl sutures. The Port-A-Cath site was then addressed. The previous incision was re-incised. The port was easily excised with the use of electrocautery. The saphenous tissues were closed using 3-0 Vicryl sutures and the skin again using a running 4-0 Monocryl stitch. The wire entrance site was then addressed. This was present at the 8:00 location. A curvilinear incision was made adjacent to the wire entrance site. I followed the wire down into the breast tissue. An adequate lumpectomy specimen then took place around the wire. Margins of 1.5-2 cm worth attempted to be achieved. Upon palpation of the specimen the margin I was most suspicious of clinically was laterally. A new lateral margin was then obtained. The initial lumpectomy specimen was painted the appropriate colors. The new lateral margin was painted on the new outside margin using the orange color. The clip assessment expert was used to shahzad the lumpectomy site circumferentially. The subcutaneous tissues were closed using 3 -0 Vicryl sutures. The skin was closed using a running 4-0 Monocryl stitch. Skin glue was then applied. DISPOSITION: Stable to recovery room
[2018-10-18 17:05] VITALS: TEMP 97.4
[2018-10-18 17:11] VITALS: RESP 16
[2018-10-18] MEDS ORDERED: HYDROcodone/APAP 5-325MG 1 EACH TAB PO ONE (19:00)
[2018-10-18 19:19] VITALS: BP 111/73; PULSE 81
--- NOTE | 2018-10-22 11:01 | CDI ---
Outpatient Documentation Clarification Form Date: 10/22/18 CDS/Shipper/Receiver Name: Stacy Messer Phone: If any questions, call Rhea Villatoro General Partner at [phone] Patient Name: Sofia Price Admit Date: 10/18/18 Discharge Date: 10/18/18 ATTENTION: The [facility] Coding Staff appreciate your assistance in clarifying documentation. Please respond to the clarification below the line at the bottom and electronically sign. The [facility] Coding staff will review the response and follow-up if needed. Please note: Queries are made part of the Legal Health Record. If you have any questions, please contact the General Partner. Dear Dr. Saul, What was the location of the peripheral nerve block injection? The report simply states Right Other (see comment). Is there a specific nerve or location on the body that was injected? Thank you for your kind consideration. MTDD
--- NOTE | 2018-10-23 10:41 | MM ---
EXAMINATION TYPE: MG pre op needle loc RT, MG surgical specimen RT, MG surgical specimen RT DATE OF EXAM: 10/18/2018 COMPARISON: Prior mammogram and MRI and PET/CT earlier this year. CLINICAL HISTORY: Biopsy-proven right breast cancer with chemotherapy last 2-3 months TECHNIQUE: Needle localization with wire placement and surgical excision of area of concern in the right breast. FINDINGS: The procedure of needle localization with wire placement and than surgical excision was explained to the patient. Benefits, alternatives, and risks were discussed. An informed consent was then obtained. The shortest pathway for procedure was chosen. Shortest pathway was lateral approach. The overlying skin was prepped and draped in usual sterile fashion. Lidocaine buffered with bicarbonate was used as anesthetic into the skin and subcutaneous tissue up to the level of area of concern. A 7 cm needle was used. It was placed via a lateral approach under mammographic guidance. Subsequent 90 degrees mammogram show the needle to be in satisfactory position relative to the targeted area. At this point, wire was placed and the needle was withdrawn. The wire was fixed to patient's skin. Images were marked for surgeon. Surgeon did not wish to do bracket localization for anterior clip at site of atypical findings on MRI guided biopsy per phone conversation prior to performing procedure. The patient tolerated the procedure well without any immediate complication. The patient was kept in the radiology department for short stay after the procedure and then taken to surgery for surgical excision. First specimen radiograph shows lesion with clip felt to reflect biopsy-proven right axillary lymph node. Targeted biopsy clip and wire are identified in second specimen mammogram. The patient was kept in hospital for short stay after the procedure and then discharged home in stable condition. IMPRESSION: Successful, uncomplicated needle localization with wire placement and surgical excision of targeted biopsy clip in the right breast, full pathology results to follow. Successful removal of biopsy-proven right axillary malignant lymph node also. Pathology Results: Malignant A. SENTINEL NODE #1, BIOPSY: Lymph node positive for metastatic carcinoma. CK7 and SCOT immunoperoxidase stains are confirmatory (controls appropriate). Scar consistent with previous treatment versus biopsy related changes. B. SENTINEL NODE #2, BIOPSY: Lymph node positive for metastatic carcinoma. Status post neoadjuvant treatment, CK7 and SCOT immunoperoxidase stains are confirmatory (controls appropriate). Central cystic degeneration with associated histiocyte and foreign body reaction. Scar consistent with previous treatment related changes. C. RIGHT BREAST, EXTRA LATERAL MARGIN, EXCISION: Lobular carcinoma in situ (LCIS ). Negative for invasive malignancy. D. RIGHT BREAST, LUMPECTOMY: Focal residual invasive ductal carcinoma, margins negative for invasive malignancy. Extensive lobular carcinoma in situ (LCIS). See Surgical Pathology Cancer Case Summary and Comment. Recommendation Surgical consult of the right breast. LANE
== END 2018-10-18 19:48 | disposition home or self-care (01) ==
LOC: OR 11:23
PROVIDERS: ATTEND Surgery
DX: C50.911 Malignant neoplasm of unspecified site of right female breast (principal); C77.3 Secondary and unspecified malignant neoplasm of axilla and upper limb lymph nodes; Z17.0 Estrogen receptor positive status [ER+]; I10 Essential (primary) hypertension; Z79.899 Other long term (current) drug therapy
CPT/HCPCS: 19301; 36590; 38525; 81025; 88342; 88307; 88341; 76098; 19281; 76641; 38792; A9520; J2250; J1644; J1100; J2405; J2001; Q9968; J3010; J1170; J2795; J2370; J0330; J2704; J0690; 64490

== ENCOUNTER → 2019-02-25 | Outpatient (CLI) | payer OTHER ==
--- NOTE | 2019-02-25 09:55 | BD ---
EXAMINATION TYPE: Axial Bone Density DATE OF EXAM: 02/25/2019 COMPARISON: NONE CLINICAL HISTORY: post menopausal Height: 5'2 Weight: 153 FRAX RISK QUESTIONS: Secondary Osteoporosis: RISK FACTORS HISTORY OF: Postmenopausal woman: y MEDICATIONS: Additional Medications: blood pressure, hormone kaitlynn Additional History: breast cancer, 2018, radiation and chemotherapy EXAM MEASUREMENTS: Bone mineral densitometry was performed using the [employer] System. Bone mineral density as measured about the Lumbar spine is: ----- L1-L4(G/cm2): 1.390 T Score Values are as follows: ----- L2: 1.5 ----- L3: 2.6 ----- L4: 2.1 ----- L1-L4:1.8 Bone mineral density about the R hip (g/cm2): 1.092 Bone mineral density about the L hip (g/cm2): 1.116 T Score values are as follows: -----R Neck: 0.4 -----L Neck: 0.6 -----R Total: 1.5 -----L Total: 2.1 IMPRESSION: Normal (Values between +1 and -1 indicate normal bone mass). Consider repeating this study in 5 year s or sooner if there is some new clinical indication. NOTE: T-SCORE=SD OF THE YOUNG ADULT MEAN.
== END ==
LOC: RADBDWWP 08:24
PROVIDERS: ATTEND Internal Medicine Hematology & Oncology
DX: N95.1 Menopausal and female climacteric states (principal); Z79.890 Hormone replacement therapy
CPT/HCPCS: 77080

== ENCOUNTER → 2019-03-25 | Outpatient (CLI) | payer OTHER ==
--- NOTE | 2019-03-25 13:23 | MR ---
PRE AND POSTCONTRAST ENHANCED MRI OF THE BRAIN: CLINICAL HISTORY: C50.511 Breast cancer CONTRAST: Gadavist 7mL Multiplanar and multispin-echo imaging of the brain was performed both before and after the administr ation of contrast. The ventricles, basal cisterns and sulci overlying the cerebral convexities are within normal limits. There is no evidence for midline shift or mass effect. Acute intracranial hemorrhage or extra-axial collection is not evident. There are no abnormal areas of increased or decreased signal intensity within the brain parenchyma. Following contrast administration, there is no evidence for pathologic enhancement or enhancing mass. The paranasal sinuses and mastoid air cells are well-aerated. IMPRESSION: Unremarkable pre and postcontrast enhanced MRI of the brain.
== END | disposition home or self-care (01) ==
LOC: RADMRIMAIN 10:38
PROVIDERS: ATTEND Radiology Radiation Oncology
DX: Z00.6 Encounter for examination for normal comparison and control in clinical research program (principal); C50.511 Malignant neoplasm of lower-outer quadrant of right female breast; Z17.0 Estrogen receptor positive status [ER+]
CPT/HCPCS: 70553; A9585

== ENCOUNTER → 2019-06-06 | Outpatient (CLI) | payer OTHER ==
--- NOTE | 2019-06-06 10:33 | CT ---
EXAMINATION TYPE: CT ChestAbdPelvis w con DATE OF EXAM: 06/06/2019 INDICATION: malignant neoplasm of central portion of breast COMPARISON: None CT DLP: 678.3 mGycm CONTRAST: Performed with Oral Contrast and with IV Contrast, patient injected with 100 mL of Isovue 300. TECHNIQUE: Axial images at 5 mm thick sections. Reconstructed images in the coronal plane. Delayed images through the kidneys. FINDINGS: CT CHEST: Portion of the thyroid visualized is normal. Nonspecific infiltrates are scattered through the right lung apex, the right middle lobe periphery. A dditional infiltrates or not identified. No solid lesions identified. Findings are nonspecific and wo uld include infectious etiologies. Post radiation changes should be considered. Clinical correlation recommended. Follow-up is recommended. No enlarged mediastinal or hilar adenopathy is evident. Couple of shotty superior mediastinal lymph n odes are present. The ascending aorta diameter at the level of the main pulmonary artery is 3.4 cm. The main pulmonary artery diameter at the bifurcation is 2.[address] ABDOMEN: Liver: Normal Spleen: Normal Pancreas: Normal Adrenal glands: The adrenal glands are normal. Gallbladder: Normal Kidneys: No masses are evident. No hydronephrosis is present. No cysts are present. Delayed images were obtained through the kidneys, which remain unremarkable. Aorta: Normal Inferior vena cava: Normal. CT PELVIS: Loops of bowel within the abdomen and pelvis are normal. There are loops of bowel which are incom pletely distended or lack oral contrast limiting their evaluation. Mild fecal retention is present. Appendix: Normal as visualized. Urinary bladder: Normal. Genitourinary structures: Uterus and adnexa are normal. Osseous structures: No suspicious lytic or sclerotic lesions. IMPRESSIONS: 1. Nonspecific infiltrate within the right upper lobe and right middle lobe periphery. Infectious ella ology is favored within the differential. 2. Mild fecal retention 3. Typical findings for metastatic disease are not identified.
== END | disposition home or self-care (01) ==
LOC: RADCTMAIN 07:50
PROVIDERS: ATTEND Internal Medicine Hematology & Oncology
DX: R91.8 Other nonspecific abnormal finding of lung field (principal)
CPT/HCPCS: 71260; 74177; Q9967

== ENCOUNTER → 2019-06-24 | Outpatient (CLI) | payer OTHER ==
--- NOTE | 2019-06-24 10:57 | MM ---
Reason for exam: additional evaluation requested from prior study. Last mammogram was performed 1 year and 3 months ago. History: Patient has history of breast cancer at age 53, has history of high-risk lesion on a previous biopsy at age 52, and had first child at age 39. Malignant MG pre op needle loc RT of the right breast, October 18, 2018. Lumpectomy of the right breast, October 18, 2018. US discontinued breast loc RT of the right breast, October 18, 2018. Benign US biopsy breast VAD LT of the left breast, May 01, 2018. High risk MR breast biopsy w vad RIGHT of the right breast, April 23, 2018. Malignant US biopsy breast VAD RT of the right breast, March 19, 2018. Chemotherapy, 2017. Radiation therapy, 2017. Benign excisional biopsy of the left breast, 1992. Took hormonal contraceptives for 15 years beginning at age 20. Taking antineoplastic for 1 year beginning at age 53. Physical Findings: Nurse did not find any significant physical abnormalities on exam. MG 3D Diag Mammo W/Cad CHELSIE Bilateral CC and MLO view(s) were taken. XCCL view(s) were taken of the right breast. Prior study comparison: March 19, 2018, right breast MG diagnostic mammo RT wo CAD. March 12, 2018, bilateral MG 3d diag mammo w/cad CHELSIE. The breast tissue is heterogeneously dense. This may lower the sensitivity of mammography. Bilateral biopsy markers noted. No suspicious abnormality. Post therapy change on the right. These results were verbally communicated with the patient and result sheet given to the patient on 06/24/19. ASSESSMENT: Benign, BI-RAD 2 RECOMMENDATION: Follow-up diagnostic mammogram of both breasts in 1 year.
== END | disposition home or self-care (01) ==
LOC: RADMAMWWP 09:32
PROVIDERS: ATTEND Surgery
DX: R92.8 Other abnormal and inconclusive findings on diagnostic imaging of breast (principal)
CPT/HCPCS: 77062; 77066

== ENCOUNTER → 2019-09-26 | Outpatient (CLI) | payer OTHER ==
--- NOTE | 2019-09-26 08:20 | CT ---
EXAMINATION TYPE: CT chest w con DATE OF EXAM: 09/26/2019 COMPARISON: CT chest abdomen and pelvis June 06, 2019. HISTORY: Breast CA CT DLP: 507 mGycm. Automated Exposure Control for Dose Reduction was Utilized. TECHNIQUE: CT scan of the thorax is performed following with IV Contrast, patient injected with 100 mL of Isovue 300. FINDINGS: LUNGS: Moderate anterior right apical pleural/parenchymal scarring is redemonstrated with additional subpleural reticulation and fibrotic changes anteriorly throughout the right lung. Mild linear scarri ng and/or atelectasis near the lingula and inferior left upper lobe anteriorly is now present near ax ial image 36. There is no pleural effusion or pneumothorax seen bilaterally. No suspicious nodules or masses. The tracheobronchial tree is patent. MEDIASTINUM: There are no greater than 1 cm hilar or mediastinal lymph nodes. No cardiomegaly or pe ricardial effusion is seen. OTHER: Diminished size to left breast consistent with benign excision redemonstrated. Right breast lo wer outer surgical changes with right breast skin thickening and axillary clip consistent with posttr eatment change are all redemonstrated. IMPRESSION: Redemonstration of posttreatment changes centered right breast without new suspicious mas s or adenopathy. No new worrisome acute findings are evident.
== END | disposition home or self-care (01) ==
LOC: RADCTMAIN 06:49
PROVIDERS: ATTEND Internal Medicine Hematology & Oncology
DX: C83.38 Diffuse large B-cell lymphoma, lymph nodes of multiple sites (principal); Z98.890 Other specified postprocedural states
CPT/HCPCS: 71260; Q9967

== ENCOUNTER → 2020-06-30 | Outpatient (CLI) | payer OTHER ==
--- NOTE | 2020-06-30 09:01 | MM ---
Reason for exam: additional evaluation requested from prior study. Last mammogram was performed 1 year ago. History: Patient has history of breast cancer at age 53, has history of high-risk lesion on a previous biopsy at age 52, and had first child at age 39. Malignant MG pre op needle loc RT of the right breast, October 18, 2018. Lumpectomy of the right breast, October 18, 2018. US discontinued breast loc RT of the right breast, October 18, 2018. Benign US biopsy breast VAD LT of the left breast, May 01, 2018. High risk MR breast biopsy w vad RIGHT of the right breast, April 23, 2018. Malignant US biopsy breast VAD RT of the right breast, March 19, 2018. Chemotherapy, 2018. Radiation therapy, 2017. Benign excisional biopsy of the left breast, 1992. Took hormonal contraceptives for 15 years beginning at age 20. Taking antineoplastic for 1 year beginning at age 53. Physical Findings: Nurse did not find any significant physical abnormalities on exam. MG 3D Diag Mammo W/Cad CHELSIE Bilateral CC and MLO view(s) were taken. Prior study comparison: June 24, 2019, bilateral MG 3d diag mammo w/cad CHELSIE. March 19, 2018, right breast MG diagnostic mammo RT wo CAD. The breast tissue is heterogeneously dense. This may lower the sensitivity of mammography. Previous mammotome biopsy in the right and left breast. Stable post operative changes on right breast. These results were verbally communicated with the patient and result sheet given to the patient on 06/30/20. ASSESSMENT: Benign, BI-RAD 2 RECOMMENDATION: Follow-up diagnostic mammogram of both breasts in 1 year.
== END | disposition home or self-care (01) ==
LOC: RADMAMWWP 06:55
PROVIDERS: ATTEND Surgery
DX: Z08 Encounter for follow-up examination after completed treatment for malignant neoplasm (principal); Z85.3 Personal history of malignant neoplasm of breast
CPT/HCPCS: 77062; 77066

== ENCOUNTER → 2021-03-01 | Outpatient (CLI) | payer OTHER ==
--- NOTE | 2021-03-01 12:15 | BD ---
EXAMINATION TYPE: Axial Bone Density DATE OF EXAM: 03/01/2021 COMPARISON: Prior DEXA bone scan February 25, 2019 CLINICAL HISTORY: Postmenopausal female. Height: 5 FT 2 IN Weight: 156 FRAX RISK QUESTIONS: Alcohol (3 or more units per day): NO Family History (Parent hip fracture): NO Glucocorticoids (More than 3mos): NO (Ex: prednisone, prednisolone, methylprednisolone, dexamethasone, and hydrocortisone). History of Fracture in Adulthood: NO Secondary Osteoporosis: 1. Type 1 Diabetes: NO 2. Hyperthyroidism: NO 3. Menopause before 45: NO 4. Malnutrition: NO 5. Chronic liver disease: NO Rheumatoid Arthritis: NO Current Tobacco Use: NO RISK FACTORS HISTORY OF: Surgery to Spine/Hip(right/left)/Wrist (right/left): NO Family History of Osteoporosis: NO Active: YES Diet low in dairy products/other sources of calcium: NO Postmenopausal woman: CHEMO INDUCED AGE 52 Take estrogen and/or progesterone medications: NONE Lost more than 2 inches in height since high school: NO MEDICATIONS: Additional Medications: ESTROGEN PLACIDO ,BLOOD PRESSURE MEDS, VIT D, BIOTIN, MULTI Additional History: BREAST CANCER 2018 RADIATION AND CHEMO EXAM MEASUREMENTS: Bone mineral densitometry was performed using the [employer] System. Bone mineral density as measured about the Lumbar spine is: ----- L1-L4(G/cm2): 1.277 T Score Values are as follows: ----- L2: 0.0 ----- L3: 1.6 ----- L4: 1.2 ----- L1-L4: 0.8 Bone mineral density has: DECREASED -9.4 % since study of: 2018 Bone mineral density about the R hip (g/cm2): 1.075 Bone mineral density about the L hip (g/cm2): 1.074 T Score values are as follows: -----R Neck: 0.3 -----L Neck: 0.3 -----R Total: 1.2 -----L Total: 1.3 Bone mineral density has: DECREASED -5.6 % since study of: 2018 IMPRESSION: Normal (Values between +1 and -1 indicate normal bone mass). Consider repeating this study in 5 year s or sooner if there is some new clinical indication. NOTE: T-SCORE=SD OF THE YOUNG ADULT MEAN.
== END | disposition home or self-care (01) ==
LOC: RADBDWWP 09:11
PROVIDERS: ATTEND Internal Medicine Hematology & Oncology
DX: C50.511 Malignant neoplasm of lower-outer quadrant of right female breast (principal); Z79.890 Hormone replacement therapy
CPT/HCPCS: 77080

== ENCOUNTER → 2021-04-01 | Outpatient (CLI) | payer OTHER ==
--- NOTE | 2021-04-01 09:33 | USB ---
Reason for exam: clinical finding. History: Patient has history of breast cancer at age 53, has history of high-risk lesion on a previous biopsy at age 52, and had first child at age 39. Malignant MG pre op needle loc RT of the right breast, October 18, 2018. Lumpectomy of the right breast, October 18, 2018. US discontinued breast loc RT of the right breast, October 18, 2018. Benign US biopsy breast VAD LT of the left breast, May 01, 2018. High risk MR breast biopsy w vad RIGHT of the right breast, April 23, 2018. Malignant US biopsy breast VAD RT of the right breast, March 19, 2018. Chemotherapy, 2018. Radiation therapy, 2018. Benign excisional biopsy of the left breast, 1992. Took hormonal contraceptives for 15 years beginning at age 20. Taking antineoplastic for 1 year beginning at age 53. Physical Findings: Nurse Summary: Patient complains of generalized pain right breast since surgery in 2018, states she felt a lump right upper breast x 1 week, states she does not feel it now, nodular bilaterally (nurse TM). US Breast RT Technologist: Abigail Kessler Right complete breast ultrasound includes all four quadrants, the retroareolar region and axilla. Finding demonstrates a 0.5 x 0.4 x 0.4cm circular, cystic lesion at the posterior nipple and a 0.4 x 0.4 x 0.4cm circular, cystic lesion with internal echoes at the posterior nipple. These results were verbally communicated with the patient and result sheet given to the patient on 04/01/21. ASSESSMENT: Benign, BI-RAD 2 RECOMMENDATION: Follow-up diagnostic mammogram of both breasts in 3 months. Manage patient on a clinical basis. Back on schedule for June 2021.
== END | disposition home or self-care (01) ==
LOC: RADUSWWP 08:08
PROVIDERS: ATTEND Internal Medicine Hematology & Oncology
DX: N60.01 Solitary cyst of right breast (principal); Z85.3 Personal history of malignant neoplasm of breast

== ENCOUNTER → 2021-06-28 | Outpatient (CLI) | payer OTHER ==
--- NOTE | 2021-06-29 14:57 | MM ---
Reason for exam: additional evaluation requested from prior study. Last mammogram was performed 1 year ago. History: Patient is postmenopausal, has history of breast cancer at age 53, has history of high-risk lesion on a previous biopsy at age 52, and had first child at age 39. Malignant MG pre op needle loc RT of the right breast, October 18, 2018. Lumpectomy of the right breast, October 18, 2018. US discontinued breast loc RT of the right breast, October 18, 2018. Benign US biopsy breast VAD LT of the left breast, May 01, 2018. High risk MR breast biopsy w vad RIGHT of the right breast, April 23, 2018. Malignant US biopsy breast VAD RT of the right breast, March 19, 2018. Chemotherapy, 2017. Radiation therapy, 2017. Benign excisional biopsy of the left breast, 1992. Took hormonal contraceptives for 15 years beginning at age 20. Taking antineoplastic for 1 year beginning at age 53. Physical Findings: Nurse did not find any significant physical abnormalities on exam. MG 3D Diag Mammo W/Cad CHELSIE Bilateral CC and MLO view(s) were taken. Prior study comparison: April 01, 2021, right breast US breast RT. June 30, 2020, bilateral MG 3d diag mammo w/cad CHELSIE. June 24, 2019, bilateral MG 3d diag mammo w/cad CHELSIE. March 12, 2018, bilateral MG 3d diag mammo w/cad CHELSIE. Previous mammotome biopsy in the right and left breast. Diffuse skin thickening right breast post radiation changes. No significant new findings when compared with previous films. These results were verbally communicated with the patient and result sheet given to the patient on 06/28/21. ASSESSMENT: Benign, BI-RAD 2 RECOMMENDATION: Follow-up diagnostic mammogram of both breasts in 1 year.
== END | disposition home or self-care (01) ==
LOC: RADMAMWWP 08:52
PROVIDERS: ATTEND Radiology Radiation Oncology
DX: Z00.6 Encounter for examination for normal comparison and control in clinical research program (principal); C50.511 Malignant neoplasm of lower-outer quadrant of right female breast; Z17.0 Estrogen receptor positive status [ER+]; Z92.3 Personal history of irradiation
CPT/HCPCS: 77062; 77066

== ENCOUNTER 2022-03-08 08:15 | Day surgery (SDC) | payer OTHER ==
[2022-03-03 12:22] VITALS: BMI 28.1
[~2022-03-08 08:15] MED LIST changes: -ALPRAZolam 0.5 MG TAB PO PRN; -DEXAMETHASONE SOD PHOSPHATE 10 MG/ML 1 ML VIAL IV ONE; -HYDROmorphone 1 MG/ML 1 ML SYRINGE IVP PRN; +LIDOCAINE 1% (10MG/ML) FOR IV START INTRADERMA PRN; -LIDOCAINE 1% 20 ML VIAL (10MG/ML) FOR IV START INTRADERMA PRN; -ONDANSETRON 4 MG/2 ML VIAL IVP ONE; -Pre Op ABX Message 1 EACH MISC MISCELLANE ONE; -SCOPOLAMINE 1.5MG/72HR PATCH TRANSDERM ONE
[2022-03-08 09:43] VITALS: RESP 16; TEMP 98.6
[2022-03-08] MEDS ORDERED: PROPOFOL 10 MG/ML 20 ML VIAL IV ONE (10:04)
--- NOTE | 2022-03-08 10:09 | P.GSHP ---
History of Present Illness H&P Date: 03/08/22 Chief Complaint: Abnormal cologuard 56-year-old female here today for colonoscopy. She has never had one before. Personal history of breast cancer. Had a recent cologuard test that was abnormal. Denies rectal bleeding or melena. No family history of colon cancer. Past Medical History Past Medical History: Cancer, Hypertension Additional Past Medical History / Comment(s): Hx right breast cancer 02/2018, tx with chemo 06/06 and radiation 12/08. History of Any Multi-Drug Resistant Organisms: None Reported Past Surgical History: Section Additional Past Surgical History / Comment(s): Left breast excisional biopsy, bilateral breast lumpectomies, right breast biopsy. Past Anesthesia/Blood Transfusion Reactions: No Reported Reaction Past Psychological History: No Psychological Hx Reported Smoking Status: Never smoker Past Alcohol Use History: None Reported Past Drug Use History: None Reported - Past Family History Sister(s) Family Medical History: Cancer, Diabetes Mellitus Additional Family Medical History / Comment(s): Leukemia. Father Family Medical History: Diabetes Mellitus, Hypertension Mother Family Medical History: Deep Vein Thrombosis (DVT), Hypertension Medications and Allergies Home Medications Medication Instructions Recorded Confirmed Type Multivitamin [Multivitamins Adult 1 tab PO DAILY 03/12/18 03/08/22 History Gummies] Cholecalciferol (Vitamin D3) 2,000 unit PO DAILY 04/19/18 03/08/22 History [Vitamin D3] amLODIPine [Norvasc] 5 mg PO QAM 04/19/18 03/08/22 History Biotin 10,000 mcg PO DAILY 03/03/22 03/08/22 History Letrozole 2.5 mg PO DAILY 03/03/22 03/08/22 History Magnesium 250 mg PO DAILY 03/03/22 03/08/22 History Vitamin B-12 (Unknown Dose) 1 tab PO DAILY 03/03/22 03/08/22 History Allergies Allergy/AdvReac Type Severity Reaction Status Date / Time No Known Allergies Allergy Verified 03/08/22 09:20 Surgical - Exam Vital Signs Temp Pulse Resp BP Pulse Ox 98.6 F 92 16 151/93 99 03/08/22 09:20 03/08/22 09:20 03/08/22 09:20 03/08/22 09:20 03/08/22 09:20 Physical exam: General: Well-developed, well-nourished HEENT: Normocephalic, sclerae nonicteric Abdomen: Nontender, nondistended Extremities: No edema Neuro: Alert and oriented Assessment and Plan (1) Abnormal stool test Narrative/Plan: Will proceed with colonoscopy at this time. Current Visit: Yes Status: Acute Code(s): R19.5 - OTHER FECAL ABNORMALITIES SNOMED Code(s): 754649928
--- NOTE | 2022-03-08 10:28 | P.PCN ---
Date of Procedure: 03/08/22 Procedure(s) Performed: PREOPERATIVE DIAGNOSIS: Abnormal stool study POSTOPERATIVE DIAGNOSIS: Normal exam PROCEDURE: Colonoscopy ANESTHESIA: MAC SURGEON: Emmanuel Ruano M.D. SPECIMENS: None ENDOSCOPIC PROCEDURE: The patient was placed on the endoscopy table in the left decubitus position. The Olympus colonoscope was inserted into the anus and passed under direct visualization to the base of the cecum. The appendiceal orifice was visualized. From that point the scope was slowly withdrawn inspecting all surfaces carefully. There were no neoplastic inflammatory or polypoid lesions throughout the cecum, ascending, transverse, descending, sigmoid and rectum. There was no visible diverticulosis noted. Patient's prep was slightly suboptimal although we were able to irrigate away most of the retained liquid stool. Digital rectal examination was normal. The patient was taken to the recovery room in stable condition per anesthesia guidelines. RECOMMENDATIONS: Resume diet. Follow-up colonoscopy 5-10 years secondary to patient's personal history of breast cancer.
[2022-03-08 10:48] VITALS: BP 144/84; PULSE 67
== END 2022-03-08 11:20 | disposition home or self-care (01) ==
LOC: ORWHC2ENDO 08:15
PROVIDERS: ATTEND Surgery
DX: R19.5 Other fecal abnormalities (principal); I10 Essential (primary) hypertension; Z85.3 Personal history of malignant neoplasm of breast; Z92.21 Personal history of antineoplastic chemotherapy; Z92.3 Personal history of irradiation; Z98.891 History of uterine scar from previous surgery; Z98.890 Other specified postprocedural states; Z83.3 Family history of diabetes mellitus; Z80.6 Family history of leukemia; Z80.8 Family history of malignant neoplasm of other organs or systems; Z79.899 Other long term (current) drug therapy
CPT/HCPCS: 45378; J2704

== ENCOUNTER → 2022-07-04 | Outpatient (CLI) | payer OTHER ==
--- NOTE | 2022-07-04 10:22 | MM ---
Reason for Exam: Follow-up at short interval from prior study. Last screening mammogram was performed 12 month(s) ago. Patient History: Menarche at age 14. First Full-Term at age 39. Late child-bearing (after 30). Postmenopausal. Breast cancer, right, age 53. Previous chest radiation therapy at age 53. Previous chemotherapy at age 53. Hormonal Contraceptives for 15 years from age 20 until age 40. 1992, Benign Excisional Biopsy on the left side. 10/18/2018, Lumpectomy on the Right side. 10/18/2018, Malignant Core Biopsy on the right side. 05/01/2018, Benign Core Biopsy on the left side. 04/23/2018, High risk Core Biopsy on the right side. 03/19/2018, Malignant Core Biopsy on the right side. 2017, Chemotherapy. 2017, Radiation Therapy. 10/18/2018, US discontinued breast loc RT on the right side. Tissue Density: There are scattered fibroglandular densities. Findings: Analyzed By CAD. Postsurgical and posttreatment changes right breast. Additional microclip right breast and 2 microclips left breast from prior biopsies. No significant change from prior exams. Overall Assessment: Benign, BI-RAD 2 Management: Screening Mammogram of both breasts in 1 year. 1. Patient should continue monthly self breast exams. 2. A clinical breast exam by your physician is recommended on an annual basis. 3. This exam should not preclude additional follow-up of suspicious palpable abnormalities. Results were given to the patient verbally at the time of exam. Electronically signed and approved by: Angel Torres M.D. Radiologist
== END | disposition home or self-care (01) ==
LOC: RADMAMWWP 09:26
PROVIDERS: ATTEND Radiology Radiation Oncology
DX: C50.111 Malignant neoplasm of central portion of right female breast (principal); Z78.0 Asymptomatic menopausal state
CPT/HCPCS: 77062; 77066

== ENCOUNTER → 2023-03-03 | Outpatient (CLI) | payer BC ==
--- NOTE | 2023-03-03 13:10 | BD ---
EXAMINATION TYPE: Axial Bone Density DATE OF EXAM: 03/03/2023 CLINICAL HISTORY: 57 years old Female. ICD-10 CODE: Z79.890 Post menopausal w/HRT Height: 62in Weight: 157lb FRAX RISK QUESTIONS: Secondary Osteoporosis: RISK FACTORS HISTORY OF: Active: yes Postmenopausal woman: yes MEDICATIONS: Additional Medications: hormone kaitlynn, bp med, vitamin d Additional History: breast cancer 2018 with radiation and chemo EXAM MEASUREMENTS: Bone mineral densitometry was performed using the [employer] System. Bone mineral density as measured about the Lumbar spine is: ----- L1-L4(G/cm2): 1.283 T Score Values are as follows: ----- L1: -0.8 ----- L2: 0.8 ----- L3: 1.5 ----- L4: 1.5 ----- L1-L4: 0.9 Z Score Values are as follows: ----- L1: -0.1 ----- L2: 1.4 ----- L3: 2.1 ----- L4: 2.1 ----- L1-L4: 1.5 Bone mineral density has: Increased 0.5% since study of: 03-01-21 Bone mineral density about the R hip (g/cm2): 1.166 Bone mineral density about the L hip (g/cm2): 1.204 T Score values are as follows: -----R Neck: 0.1 -----L Neck: 0.2 -----R Total: 1.3 -----L Total: 1.6 Z Score values are as follows: -----R Neck: 1.1 -----L Neck: 1.1 -----R Total: 1.8 -----L Total: 2.1 Bone mineral density has: Increased 1.6% since study of: 03-01-21 FRAX%s: The graph provided illustrates a 5.1% chance for a major osteoporotic fx and a 0.1% chance fo r the hips probability for fx in 10 years time. IMPRESSION: Normal (Values between +1 and -1 indicate normal bone mass). Consider repeating this study in 5 year s or sooner if there is some new clinical indication. NOTE: T-SCORE=SD OF THE YOUNG ADULT MEAN.
== END | disposition home or self-care (01) ==
LOC: RADBDWWP 12:38
PROVIDERS: ATTEND Internal Medicine Hematology & Oncology
DX: C50.511 Malignant neoplasm of lower-outer quadrant of right female breast (principal); I10 Essential (primary) hypertension; Z71.3 Dietary counseling and surveillance; Z78.0 Asymptomatic menopausal state; Z79.890 Hormone replacement therapy
CPT/HCPCS: 77080

== ENCOUNTER → 2023-07-10 | Outpatient (CLI) | payer BC ==
--- NOTE | 2023-07-10 09:25 | MM ---
Reason for Exam: Hx of breast cancer, conservation therapy. Last screening mammogram was performed 12 month(s) ago. Patient History: Menarche at age 14. First Full-Term at age 39. Late child-bearing (after 30). Postmenopausal. Breast cancer, right, age 53. Previous chest radiation therapy at age 53. Previous chemotherapy at age 53. Hormonal Contraceptives for 15 years from age 20 until age 40. 1992, Benign Excisional Biopsy on the left side. 10/18/2018, Lumpectomy on the Right side. 10/18/2018, Malignant Core Biopsy on the right side. 05/01/2018, Benign Core Biopsy on the left side. 04/23/2018, High risk Core Biopsy on the right side. 03/19/2018, Malignant Core Biopsy on the right side. 2017, Chemotherapy. 2017, Radiation Therapy. 10/18/2018, US discontinued breast loc RT on the right side. Prior Study Comparison: 03/19/2018 Right Diagnostic Mammogram, [facility]. 04/13/2018 Bilateral Diagnostic Breast MRI, [facility]. 04/23/2018 Left Diagnostic Ultrasound, [facility]. 06/24/2019 Bilateral Diagnostic Mammogram, [facility]. 06/30/2020 Bilateral Diagnostic Mammogram, [facility]. 04/01/2021 Right Diagnostic Ultrasound, [facility]. 06/28/2021 Bilateral Diagnostic Mammogram, [facility]. 07/04/2022 Bilateral MG 3D diag mammo w/cad CHELSIE, [facility]. Tissue Density: There are scattered fibroglandular densities. Findings: Analyzed By CAD. Impression multiple stable. Postsurgical clips are within the right breast. Bilateral core markers are present. Benign calcification is present. No significant interval change is evident. No suspicious groups of microcalcifications, spiculated or lobular masses, architectural distortion or other secondary signs of malignancy are mammographically apparent. Overall Assessment: Benign, BI-RAD 2 Management: Screening Mammogram of both breasts in 1 year. A negative mammogram report should not preclude additional follow up of suspicious palpable abnormalities. Patient should continue monthly self breast exam. A clinical breast exam by your physician is recommended on an annual basis and results should be correlated with mammographic findings. Electronically signed and approved by: Shahriar Niño D.O. Radiologis
== END | disposition home or self-care (01) ==
LOC: RADMAMWWP 09:01
PROVIDERS: ATTEND Radiology Radiation Oncology
DX: Z08 Encounter for follow-up examination after completed treatment for malignant neoplasm (principal); Z00.6 Encounter for examination for normal comparison and control in clinical research program; C50.511 Malignant neoplasm of lower-outer quadrant of right female breast; I10 Essential (primary) hypertension; Z78.0 Asymptomatic menopausal state; Z85.3 Personal history of malignant neoplasm of breast; Z92.3 Personal history of irradiation; Z71.3 Dietary counseling and surveillance; Z79.890 Hormone replacement therapy
CPT/HCPCS: 77062; 77066

== ENCOUNTER → 2023-09-11 | Outpatient (CLI) | payer BC ==
--- NOTE | 2023-09-11 08:43 | MR ---
EXAMINATION TYPE: MR cervical spine wo/w con DATE OF EXAM: 09/11/2023 COMPARISON: None HISTORY: Neck pain x 4 years, post radiation treatment breast ca CONTRAST: Performed utilizing 7 mL intravenous Gadavist gadolinium contrast. TECHNIQUE: Multiplanar multiecho imaging on a 3.0 Talia magnet is performed through the cervical spin e. FINDINGS: The craniovertebral junction is normal. Vertebral body alignment is normal. C7-T1: No focal disc herniation or significant disc bulge is evident. No spinal canal stenosis or n eural foraminal stenosis is present. C6-7: Broad-based disc bulge has mild anterior thecal sac compression. This comes in close approximat ion of the spinal cord. No cord deformity is evident. No Spinal canal stenosis or neural foramina pola nosis.. C5-6: Broad-based disc bulge is moderate anterior thecal sac compression. This may have anterior cord contact without deformity. No AP spinal canal stenosis is present. Neural foramen are moderately sam rowed due to uncovertebral joint hypertrophy.. C4-5: Minimal disc bulges anterior thecal sac flattening. Uncovertebral joint hypertrophy on the righ t has moderate right foraminal stenosis.. C3-4: There is a small central protrusion with minimal anterior thecal sac compression. No cord conta ct or spinal canal stenosis is present. Neural foramen are patent.. C2-3: No focal disc herniation or significant disc bulge is evident. No spinal canal stenosis or juventino ral foraminal stenosis is present. IMPRESSION: 1. Uncovertebral joint hypertrophy contributing to foraminal stenosis. This appears greatest at C5-6. 2. Disc bulging C3-4 through C6-7. This may be greatest at the C5-6 level with cord contact without d eformity. No spinal canal stenosis. No additional cord contact evident.
== END | disposition home or self-care (01) ==
LOC: RADMRIMAIN 07:39
PROVIDERS: ATTEND Internal Medicine Hematology & Oncology
DX: C50.511 Malignant neoplasm of lower-outer quadrant of right female breast (principal); M48.02 Spinal stenosis, cervical region; M50.31 Other cervical disc degeneration, high cervical region; Z71.3 Dietary counseling and surveillance
CPT/HCPCS: 72156; A9585

== ENCOUNTER → 2024-07-11 | Outpatient (CLI) | payer BC ==
--- NOTE | 2024-07-28 12:48 | MM ---
Reason for Exam: Screening (asymptomatic). Last screening mammogram was performed 12 month(s) ago. Patient History: Menarche at age 14. First Full-Term at age 39. Late child-bearing (after 30). Postmenopausal. Breast cancer, right, age 53. Previous chest radiation therapy at age 53. Previous chemotherapy at age 53. Hormonal Contraceptives for 15 years from age 20 until age 40. 1992, Benign Excisional Biopsy on the left side. 10/18/2018, Lumpectomy on the Right side. 10/18/2018, Malignant Core Biopsy on the right side. 05/01/2018, Benign Core Biopsy on the left side. 04/23/2018, High risk Core Biopsy on the right side. 03/19/2018, Malignant Core Biopsy on the right side. 2017, Chemotherapy. 2017, Radiation Therapy. 10/18/2018, US discontinued breast loc RT on the right side. Prior Study Comparison: 06/28/2021 Bilateral Diagnostic Mammogram, [facility]. 07/04/2022 Bilateral MG 3D diag mammo w/cad [facility], [facility]. 07/10/2023 Bilateral MG 3D diag mammo w/cad [facility], [facility]. Tissue Density: The breasts are almost entirely fatty. Findings: Analyzed By CAD. Right breast surgical clips. Bilateral biopsy clips. Right breast: There is no suspicious group of microcalcifications or new suspicious mass. Left breast: There is no suspicious group of microcalcifications or new suspicious mass. Benign-appearing calcifications left breast. Overall Assessment: Benign, BI-RAD 2 Management: Screening Mammogram of both breasts in [address] [facility] will attempt to contact patient to return for supplemental views and ultrasound if indicated. Patient should continue monthly self-breast exams. A clinical breast exam by your physician is recommended on an annual basis. This exam should not preclude additional follow-up of suspicious palpable abnormalities. Note on Laurie scores and lifetime risk: 1. A Laurie score greater than 3% is considered moderate risk. If this is the case, consider specialist referral to assess eligibility for a risk reducing agent. 2. If overall lifetime risk for the development of breast cancer is 20% or higher, the patient may qualify for future screening with alternating mammogram and breast MRI. Electronically signed and approved by: Gavino Brown DO
== END | disposition home or self-care (01) ==
LOC: RADMAMWWP 19:50
PROVIDERS: ATTEND Internal Medicine Hematology & Oncology
DX: Z12.31 Encounter for screening mammogram for malignant neoplasm of breast (principal); Z78.0 Asymptomatic menopausal state; Z92.3 Personal history of irradiation
CPT/HCPCS: 77063; 77067

== ENCOUNTER → 2025-03-28 | Outpatient (CLI) | payer BC ==
--- NOTE | 2025-03-28 15:19 | BD ---
EXAMINATION TYPE: Axial Bone Density DATE OF EXAM: 03/28/2025 CLINICAL HISTORY: 59 years old Female. ICD-10 CODE: M81.0 AGE RELATED OSTEO , Additional History: Height: 61.5 Weight: 157 FRAX RISK QUESTIONS: Alcohol (3 or more units per day): no Family History (Parent hip fracture): no Glucocorticoids (More than 3mos): no (Ex: prednisone, prednisolone, methylprednisolone, dexamethasone, and hydrocortisone). History of Fracture in Adulthood: no Secondary Osteoporosis: 1. Type 1 Diabetes: no 2. Hyperthyroidism: no 3. Menopause before 45: no 4. Malnutrition: no 5. Chronic liver disease: no Rheumatoid Arthritis: no Current Tobacco Use: no RISK FACTORS HISTORY OF: Hip Fracture (Right/Left): no Spine Fracture: no History of Wrist Fracture: no Surgery to Spine/Hip(right/left)/Wrist (right/left): no MEDICATIONS: Thyroid Medications: no Osteoporosis Medications: no EXAM MEASUREMENTS: Bone mineral densitometry was performed using the [employer]. Bone mineral density as measured about the Lumbar spine is: ----- L1-L4(G/cm2): 1.335 T Score Values are as follows: ----- L1: 0.7 ----- L2: 1.4 ----- L3: 1.1 ----- L4: 1.9 ----- L1-L4: 1.3 Z Score Values are as follows: ----- L1: 1.5 ----- L2: 2.2 ----- L3: 1.9 ----- L4: 2.7 ----- L1-L4: 2.1 Bone mineral density has: increased 4.1 % since study of: 03/03/2023 Bone mineral density about the R hip (g/cm2): 1.113 Bone mineral density about the L hip (g/cm2): 1.129 T Score values are as follows: -----R Neck: -0.4 -----L Neck: 0.1 -----R Total: 0.8 -----L Total: 1.0 Z Score values are as follows: -----R Neck: 0.6 -----L Neck: 1.1 -----R Total: 1.5 -----L Total: 1.6 Bone mineral density has: decreased -5.4 % since study of: 03/03/2023 FRAX%s: The graph provided illustrates a 5.9% chance for a major osteoporotic fx and a 0.2% chance fo r the hips probability for fx in 10 years time. IMPRESSION: Normal (Values between +1 and -1 indicate normal bone mass). Consider repeating this study in 5 year s or sooner if there is some new clinical indication. NOTE: T-SCORE=SD OF THE YOUNG ADULT MEAN. [facility], , 03/28/2025 3:17 PM
== END | disposition home or self-care (01) ==
LOC: RADBDWWP 13:47
PROVIDERS: ATTEND Internal Medicine Hematology & Oncology
DX: M81.0 Age-related osteoporosis without current pathological fracture (principal); C50.511 Malignant neoplasm of lower-outer quadrant of right female breast; I10 Essential (primary) hypertension; Z71.3 Dietary counseling and surveillance
CPT/HCPCS: 77080